=== PATIENT | male | born 2000 | race Two or more races ===

== ENCOUNTER 2023-06-02 13:32 | Emergency (ER) | payer OTHER, SELFPAY ==
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
[2023-06-02 14:50] VITALS: BP 98/64; PULSE 71; RESP 18; TEMP 36.8; O2SAT 98
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
[2023-06-02] MEDS: HYDROcodone Bit/Acetam 5/325 TABLET 1 TAB PO (17:27)
== END 2023-06-02 17:36 | disposition home or self-care (01) ==
PROVIDERS: Emergency Provider Student in an Organized Health Care Education/Training Program
DX: S62.201A Unspecified fracture of first metacarpal bone, right hand, initial encounter for closed fracture (principal); V27.49XA Other motorcycle driver injured in collision with fixed or stationary object in traffic accident, initial encounter; Y93.9 Activity, unspecified; Y92.410 Unspecified street and highway as the place of occurrence of the external cause; Y99.9 Unspecified external cause status
CPT/HCPCS: 29125; 73110; 73130; 99283; 99284

== ENCOUNTER 2023-06-06 14:06 | Outpatient (AMB) | payer OTHER, SELFPAY ==
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
== END 2023-06-06 15:04 | disposition home or self-care (01) ==
PROVIDERS: Visit Provider Physician Assistant
DX: S62.201A Unspecified fracture of first metacarpal bone, right hand, initial encounter for closed fracture (principal)
CPT/HCPCS: 26600; 99204

== ENCOUNTER → 2023-06-06 14:06 | Outpatient (BNVA) | payer OTHER, SELFPAY | PROVIDERS: Visit Provider Physician Assistant | DX: S62.201A Unspecified fracture of first metacarpal bone, right hand, initial encounter for closed fracture (principal); R55 Syncope and collapse | CPT/HCPCS: 26600; 99202 ==

== ENCOUNTER 2023-06-13 07:49 | Day surgery (SDC) | payer OTHER, SELFPAY ==
--- NOTE | 2023-06-12 09:16 | HO.ANESPROP2 ---
Documented by User: Jennifer Rivera NP 06/12/23 09:16 HPI - Anesthesia Eval Consult details Narrative: 23yo M for 1st Metacarpal OPEN ORIF vs CRPP PMFSH Active Problems Active Problems: All Active Problems (Updated 06/06/23 @ 15:06 by Teresa Bowser) Fracture of first metacarpal of right hand (Acute) Social History Social History (Updated 06/06/23 @ 14:13 by SUSHIL Shin) Patient Tobacco Use Status: Never used Tobacco Use of substances other than those prescribed or required for medical reasons: Yes Substance Use Type Other:: last used at midnight 06/13/23 Substance Use Frequency: Daily Are you DNR?: No Advance Directives: No Advance Directives Information Provided: Yes Current occupational status: unemployed and disabled Current occupation: right hand Meds Allergies Allergy/AdvReac Type Severity Reaction Status Date / Time No Known Allergies Allergy Verified 06/06/23 14:13 Exam Exam Date and Time: June 12, [id number] Assessment and Plan Assessment Anesthesia Assessment: Chart Reviewed Documented by User: Ronal Gomes MD 06/13/23 10:36 [facility] Family History Family history of problems with anesthesia: No Surgical History History of Problems with Anesthesia: No Social History Social History (Updated 06/06/23 @ 14:13 by SUSHIL Shin) Patient Tobacco Use Status: Never used Tobacco Use of substances other than those prescribed or required for medical reasons: Yes Substance Use Type Other:: last used at midnight 06/13/23 Substance Use Frequency: Daily Are you DNR?: No Advance Directives: No Advance Directives Information Provided: Yes Current occupational status: unemployed and disabled Current occupation: right hand Meds Allergies Allergy/AdvReac Type Severity Reaction Status Date / Time No Known Allergies Allergy Verified 06/06/23 14:13 Exam Airway Mallampati Class: II TM Dist: >3cm Loose/Missing/Broken Teeth: Yes Other: broken teeth Assessment and Plan Assessment Anesthesia Assessment: Anesthesia Plan Discussed Final Anesthetic Review Family History of Problems with Anesthesia: No History of Problems with Anesthesia: No NPO: Yes ASA Class: II Final Preanesthetic Review: No Changes in Pt Med Stat, Meds/Allgs Chart Reviewed, Consent Obtained/Reviewed and Anes Risks/Benef Reviewed Patient Risk: Low Procedure Risk: Low Anesthetic Plan Anesthetic Plan: GA and Regional Block Disposition: Standard PACU
--- NOTE | ~2023-06-13 | FL_ITS ---
EXAMINATION: XR FLUOROSCOPY WITH IMAGES CLINICAL INFORMATION: Fracture right 1st metacarpal. COMPARISON: Previous x-ray May 2023 TECHNIQUE: Fluoroscopy Supervised By: Dr. Heidi Browne. Fluoroscopy Time: 94.36 seconds. Cumulative Dose: 2.9860 mGy. DAP: 0.1805 Gycm2. Images: 10. FINDINGS: Images demonstrate intra-articular fracture at the base of the first metacarpal bone. Later images demonstrate K wires or pins across the fracture and base of the second metacarpal bone and across the first PRISON joint. There is improved alignment. FL/FL guidance in OR IMPRESSION: Fluoroscopy guidance for ORIF of right first metacarpal fracture.
[2023-06-13 08:20] LABS: Amphetamine Screen Urine Not Detected (Not Detect); Barbiturates, Urine Not Detected (Not Detect); Benzodiazepines Screen Urine Not Detected (Not Detect); Cannabinoid Screen Urine POSITIVE (Not Detect); Cocaine Screen Urine Not Detected (Not Detect); Fentanyl, urine Not Detected (Not Detect); Opiate Screen Urine Not Detected (Not Detect); Phencyclidine Screen Urine Not Detected (Not Detect)
[2023-06-13 08:21] VITALS: BP 117/69; PULSE 84; RESP 18; TEMP 36.6; O2SAT 98
[2023-06-13] MEDS: Lactated Ringers 1,000 ML 100 ML IVCONT (08:35)
--- NOTE | 2023-06-13 10:08 | MHC.SHP ---
Pre-Procedural Eval Section A Date of Service: 06/13/23 The patient is an INPATIENT: No Changes since office visit: No Cold of Flu in the past 2 weeks, No New Medical Problems, No Changes in Medication and No Patient answered all questions The History & Physical has been completed within 30 days and I have reviewed it.: Yes Section B Chief Complaint: Unspecified fracture of first metacarpal bone, rig Allergies: Allergies Allergy/AdvReac Type Severity Reaction Status Date / Time No Known Allergies Allergy Verified 06/06/23 14:13 Plan I have reviewed the history and physical and performed a pertinent physical examination on my patient. No changes have occurred unless specified. Time Spent With Patient Time: Total time managing care of this patient today ____ minutes.
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
[2023-06-13 11:35] VITALS: BP 116/71; PULSE 83; RESP 18; TEMP 36.7; O2SAT 99
[2023-06-13 11:40] VITALS: BP 124/69; PULSE 73; RESP 16; O2SAT 100
[2023-06-13 11:45] VITALS: BP 113/42; PULSE 80; RESP 16; O2SAT 98
[2023-06-13 11:50] VITALS: BP 113/61; PULSE 57; RESP 16; O2SAT 98
[2023-06-13 12:05] VITALS: BP 106/50; PULSE 83; RESP 16; TEMP 36.7; O2SAT 98
== END 2023-06-13 13:14 | disposition home or self-care (01) ==
PROVIDERS: Internal Medicine; Visit Provider Orthopaedic Surgery
PROC: (CPT 26615; principal; 2023-06-13 09:20)
DX: S62.211A Bennett's fracture, right hand, initial encounter for closed fracture (principal); W18.39XA Other fall on same level, initial encounter; Y93.55 Activity, bike riding; Y92.9 Unspecified place or not applicable; Y99.8 Other external cause status; Y93.I9 Activity, other involving external motion
CPT/HCPCS: 26650; 80307; J0690; J1100; J2250; J2795

== ENCOUNTER → 2023-06-13 07:49 | Outpatient (BNV) | payer OTHER, SELFPAY | PROVIDERS: Visit Provider Orthopaedic Surgery | DX: S62.201A Unspecified fracture of first metacarpal bone, right hand, initial encounter for closed fracture (principal) | CPT/HCPCS: 26727 ==

== ENCOUNTER 2023-06-19 14:39 | Outpatient (AMB) | payer OTHER, SELFPAY ==
--- NOTE | 2023-06-19 14:42 | MHC.OFFVIS ---
Intake Intake Visit Reasons: PO 1st meta base fx 06/13/23AR Intake Note: Tevin a 23 year old male who presents today for a post operative dressing change of 1st metacarpal CRPP, DOS 06/13/23 AR. Patient reports splint sweaty and wet. Allergies No Known Allergies Allergy (Verified 06/19/23 14:52) HPI PO 1st meta base fx 06/13/23AR HPI Details 23-year-old male who returns to the office today for post-op 1st metacarpal CRPP, 06/13/[address] Browne. He denies experiencing any pain and is doing well overall. He reports his splint was wet due to the sweat. He has no other concerns today. [facility] Social History (Reviewed 06/19/23 @ 14:53 by Emily Noriega [facility]) Patient Tobacco Use Status: Never used Tobacco Current occupational status: unemployed and disabled Current occupation: right hand Review of Systems Const All systems reviewed & are unremarkable except as noted in HPI and below Physical Exam Extrem Other: Right hand: Normal to inspection. Pins are intact. No erythema or drainage. Sensation are intact. Office Procedures Casting/Splints 54315-[id number] Splint Application Procedure code (CPT) selection complete Assessment & Plan Assessment & Plan (1) Fracture of first metacarpal of right hand: Code(s): S62.201A - Unspecified fracture of first metacarpal bone, right hand, initial encounter for closed fracture Qualifiers: Encounter type: initial encounter Fracture morphology: unspecified fracture morphology Fracture type: closed Metacarpal location: unspecified portion of metacarpal Qualified Code(s): S62.201A - Unspecified fracture of first metacarpal bone, right hand, initial encounter for closed fracture Plan The pin site was cleaned and he was placed in a new thumb spica splint which he will keep clean and dry, no use of the RUE. He will see me back as scheduled on June 25 for his routine post-op appointment, sooner if needed. Patient Instructions: Scribed for Agus Castañeda PA-C, by Alex Mahmood manager of medical, on 06/19/2023 at 2:30 PM EST. IAgus PA-C, have personally reviewed and agree with the information entered by the scribe. Coding Level of Care Code Global (34597) Diagnoses Closed fracture of first metacarpal bone of right hand, unspecified fracture morphology, unspecified portion of metacarpal, initial encounter S62.201A Encounter type: initial encounter Fracture morphology: unspecified fracture morphology Fracture type: closed Metacarpal location: unspecified portion of metacarpal CPT Codes Splint - CPT: 81112-Fchrskm Splint Application ([id number])
== END 2023-06-19 15:28 | disposition home or self-care (01) ==
PROVIDERS: Visit Provider Physician Assistant
DX: S62.201A Unspecified fracture of first metacarpal bone, right hand, initial encounter for closed fracture (principal)
CPT/HCPCS: 29125; 99024

== ENCOUNTER → 2023-06-19 14:39 | Outpatient (BNVA) | payer OTHER, SELFPAY | PROVIDERS: Visit Provider Physician Assistant ==

== ENCOUNTER 2023-06-25 14:14 | Outpatient (AMB) | payer OTHER, SELFPAY ==
--- NOTE | 2023-06-25 14:33 | MHC.OFFVIS ---
Intake Intake Visit Reasons: PO 1st meta base fx 06/13/23AR Intake Note: Tevin a 23 year old male who presents today for a post operative appointment for his 1st metacarpal CRPP, DOS 06/13/23 AR. Dressing removed and xrays updated in office. Allergies No Known Allergies Allergy (Verified 06/25/23 14:43) HPI PO 1st meta base fx 06/13/23AR HPI Details Tevin is a 23 year old right hand dominant man who presents S/P right Knapp's fracture dislocation CRPP, DOS: 06/13/23. He is seen today with his girlfriend He was seen by OLINDA Goldsmith on 06/19/23 for a cast change and was placed in a thumb spica splint. He got his previous cast wet in the shower. He says he is doing well overall, and denies any pain. He has no redness or drainage He reports smoking Marijuana frequently throughout the day, every day. [facility] Social History Patient Tobacco Use Status: Never used Tobacco Current occupational status: unemployed and disabled Current occupation: right hand Review of Systems Const All systems reviewed & are unremarkable except as noted in HPI and below Physical Exam Const General: no acute distress and alert Orientation/consciousness: patient oriented x3 Neuro General: patient oriented x3 Extrem Other: The patient was alert oriented and in no acute distress The incision is healing well with no erythema drainage or evidence of infection. Sutures removed and Steri-Strips applied He can make a fist and extend all his digits He can move his wrist without pain He can gently flex and extend his thumb IP joint Sensation is intact Cap refill is brisk Radiographs: 3 views of the right hand, with attention to the thumb were taken and viewed by me today in clinic. They she a right 1st MCP base and CMC joint Knapp's fracture. There may have been a small amount of displacement at the fx site. K-wires appear in satisfactory position Psych Appearance: grossly normal Affect: normal affect Attitude: cooperative Assessment & Plan Assessment & Plan (1) Fracture, Knapp's, right hand, closed: Code(s): S62.211A - Knapp's fracture, right hand, initial encounter for closed fracture Plan Assessment & Plan: 1. Right 1st MCP base and CMC joint Knapp's fracture dislocation, S/P CRPP DOS: 06/13/23 Seen for a cast change: 06/19/23 The patient appears to be doing well post-operatively I educated him about the post-operative course I explained the signs and symptoms of infection, if the patient develops any new or worsening erythema, drainage, pain, or warmth they should contact the clinic or attend the ED. As he has already been seen for a wet cast change, out of an abundance of caution I ordered a 7-day course of PO Augmentin for him to take He was placed in a new thumb spica cast to wear for the next few weeks I discussed activity modifications, he is to lift nothing heavier than a cellphone for the next several weeks He is a heavy user of Marijuana, and I explained the difficulties of bone healing when smoking I explained this could delay the removal of his K-wires if he continues to smoke He will follow up in 4 weeks, with X-rays 3V attn R thumb I anticipate K-wire removal at his next appointment, based on bony healing Scribed for Heidi Browne MD by Dima Singh, certified medical biller, on 06/25/23 at 3:00 PM, EST. Orders: Orders XR hand RT min 3V Today M79.641 - Pain in right hand Medications: New amoxicillin-pot clavulanate 875-125 mg 1 tab PO Q12H 14 tabs 0RF Coding Level of Care Code Global (75802) Diagnoses Fracture, Knapp's, right hand, closed S62.211A
== END 2023-06-25 15:40 | disposition home or self-care (01) ==
PROVIDERS: Visit Provider Orthopaedic Surgery
DX: S62.211A Bennett's fracture, right hand, initial encounter for closed fracture (principal)
CPT/HCPCS: 99024

== ENCOUNTER 2023-06-25 15:39 | Outpatient (REF) | payer OTHER, SELFPAY ==
--- NOTE | ~2023-06-25 | XR_ITS ---
EXAMINATION: XR HAND, RIGHT CLINICAL INFORMATION: Right hand pain. COMPARISON: None available. TECHNIQUE: PA, lateral, and oblique views of the right hand. FINDINGS: The patient is status post orthopedic pin placement through a fracture at the base of the first metacarpal bone. The tip of the more peripheral pin appears to lie in the proximal metaphysis of the second metacarpal bone. The proximal pin may traverse the trapezium, although it is difficult to definitively to ascertain its course. The location of the tip of the more proximal pin is also not clearly appreciated, and may lie in the region of the joint space between the trapezium and trapezoid bones. No evidence of fracture or loosening of the metallic pins. The smaller bony fragment may be displaced peripherally approximately 0.2-0.3 cm relative to the main fragment. No subluxation is seen. The bones and soft tissues otherwise appear unremarkable. No other fracture. Alignment otherwise appears anatomic. Joint spaces otherwise appear maintained. No erosions or soft tissue calcifications. XR/XR hand RT min 3V IMPRESSION: Status post orthopedic pin placement through a fracture at the base of the first metacarpal bone, as above.
== END 2023-06-25 15:40 | disposition home or self-care (01) ==
LOC: HO.HOSX 15:39
PROVIDERS: Visit Provider Orthopaedic Surgery
DX: S62.211D Bennett's fracture, right hand, subsequent encounter for fracture with routine healing (principal)
CPT/HCPCS: 73130

== ENCOUNTER 2023-07-23 10:46 | Outpatient (REF) | payer OTHER, SELFPAY ==
--- NOTE | ~2023-07-23 | XR_ITS ---
EXAMINATION: XR HAND, RIGHT CLINICAL INFORMATION: Pain COMPARISON: Hand radiographs 06/25/2023 TECHNIQUE: Three views of the right hand. FINDINGS: Percutaneous fixation pins are seen fixating the fracture of the base of the first metacarpal in unchanged alignment with some suspected minimal bridging bony calcification new from prior. Joint spaces are maintained. Soft tissues are unremarkable. XR/XR hand RT min 3V IMPRESSION: Percutaneous fixation pins are seen fixating the fracture of the base of the first metacarpal in unchanged alignment with some suspected minimal bridging bony calcification new from prior.
== END 2023-07-23 10:47 | disposition home or self-care (01) ==
LOC: HO.HOSX 10:46
PROVIDERS: Visit Provider Physician Assistant
DX: S62.211D Bennett's fracture, right hand, subsequent encounter for fracture with routine healing (principal); M79.641 Pain in right hand; X58.XXXD Exposure to other specified factors, subsequent encounter
CPT/HCPCS: 29085; 73130

== ENCOUNTER 2023-07-23 14:41 | Outpatient (AMB) | payer OTHER, SELFPAY ==
--- NOTE | 2023-07-23 14:59 | MHC.OFFVIS ---
Intake Intake Visit Reasons: PO 1st meta base fx 06/13/23AR Intake Note: Tevin is a 23 year old right hand dominant male who presents today for a post op appointment s/p 1st meta base fx 06/13/23 AR. Patient reports having pain and discomfort. Also he stated that the cast was unconformable. Allergies No Known Allergies Allergy (Verified 07/23/23 15:05) HPI PO 1st meta base fx 06/13/23AR HPI Details 23-year-old right hand dominant male who presents in the office today 5 weeks status post right 1st metacarpal base and CMC joint (Knapp's fracture dislocation) closed reduction percutaneous pinning, which was performed on 06/13/[address] Browne. [facility] Social History Patient Tobacco Use Status: Never used Tobacco Current occupational status: unemployed and disabled Current occupation: right hand Review of Systems Const All systems reviewed & are unremarkable except as noted in HPI and below Physical Exam Const General: cooperative, healthy appearing and no acute distress Resp Effort & Inspection: normal respiratory effort and able to speak in complete sentences Cardio Rate: regular rate Peripheral pulses: Peripheral pulses 2+ throughout GI Palpation (GI): Soft to palpation Skin Lesions: no lesions Rashes: no rashes Extrem Other: Right hand: Normal to inspection. Pins are intact. No erythema or drainage. Sensation is intact. Office Procedures Casting/Splints 09322-Ftbw/Wrist Cast Application Procedure code (CPT) selection complete Assessment & Plan Assessment & Plan (1) Fracture, Knapp's, right hand, closed: Code(s): S62.211A - Knapp's fracture, right hand, initial encounter for closed fracture Qualifiers: Encounter type: subsequent encounter Fracture healing: with routine healing Qualified Code(s): S62.211D - Knapp's fracture, right hand, subsequent encounter for fracture with routine healing Plan Mr. Gulshan Jones is a 23-year-old right hand dominant male who presents in the office today 5 weeks status post right 1st metacarpal base and CMC joint (Knapp's fracture dislocation) closed reduction percutaneous pinning, which was performed on 06/13/[address] Browne. X-rays obtained in the office today does show some bony healing, however, in my opinion this is not adequate enough for pin removal at this time. He was placed back into a thumb spica cast, custom made, while in the office today. I would like for him to follow up in 2 weeks for repeat x-rays to re-evaluated pin removal would be appropriate at that time. We did re-educated the patient that this is likely delayed healing due to his heavy marijuana smoking. The patient understands and accepts reluctantly. Follow up will be in 2 weeks, or sooner if needed. X-rays of the right thumb which were obtained while in the office today and were reviewed by me, Jammie Hart PA-C, revealed some bony healing. Patient Instructions: Scribed for Jammie Hart PA-C by Teresa Bowser medical record coder, on 07/23/2023 at 2:46 pm, EST. Coding Level of Care Code Global (75494) Diagnoses Closed Knapp's fracture of right thumb with routine healing, subsequent encounter S62.211D Encounter type: subsequent encounter Fracture healing: with routine healing CPT Codes Casting - CPT: 10769-Ljmi/Wrist Cast Application ([id number])
== END 2023-07-23 15:40 | disposition home or self-care (01) ==
PROVIDERS: Visit Provider Physician Assistant
DX: S62.211D Bennett's fracture, right hand, subsequent encounter for fracture with routine healing (principal)
CPT/HCPCS: 29085; 99024

== ENCOUNTER 2023-08-05 14:39 | Outpatient (REF) | payer OTHER, SELFPAY ==
--- NOTE | ~2023-08-05 | XR_ITS ---
EXAMINATION: XR HAND, RIGHT CLINICAL INFORMATION: Pain. COMPARISON: Prior examinations, most recently 07/23/2023. TECHNIQUE: PA, lateral, and oblique views of the right hand. FINDINGS: There is generalized periarticular osteopenia. There is stable alignment of a mildly displaced intra-articular fracture of the base of the right first metacarpal bone. 2 percutaneous fixator pins are unchanged in positions, without failure or loosening noted. No dislocation is seen. There is no focal soft tissue swelling, gas or foreign body. XR/XR hand RT min 3V IMPRESSION: There is stable alignment of a mildly displaced intra-articular fracture of the base of the right first metacarpal. No significant new callus formation is noted.
== END 2023-08-05 14:40 | disposition home or self-care (01) ==
LOC: HO.HOSX 14:39
PROVIDERS: Visit Provider Physician Assistant
DX: S62.211D Bennett's fracture, right hand, subsequent encounter for fracture with routine healing (principal)
CPT/HCPCS: 29085; 73130

== ENCOUNTER 2023-08-05 14:39 | Outpatient (AMB) | payer OTHER, SELFPAY ==
--- NOTE | 2023-08-05 14:56 | MHC.OFFVIS ---
Intake Intake Visit Reasons: PO 1st meta base fx 06/13/23AR Intake Note: Tevin is a 23 year old right hand dominant male who presents today for a post op appointment s/p 1st meta base fx 06/13/23 AR. Cast off and xrays updated. Patient reports that he continues to have pain at pin site. Allergies No Known Allergies Allergy (Verified 08/05/23 14:58) HPI PO 1st meta base fx 06/13/23AR HPI Details 23-year-old right hand dominant male who returns to the office today for post-op 1st metacarpal base fracture, 06/13/[address] Browne. He continues to have pain at the pin site of his finger but is doing well overall. He has no other concerns today. [facility] Patient Tobacco Use Status: Never used Tobacco Current occupational status: unemployed and disabled Current occupation: right hand Review of Systems Const All systems reviewed & are unremarkable except as noted in HPI and below Physical Exam Extrem Other: Right hand: Normal to inspection. Pins are intact. No erythema or drainage. Sensation are intact. Office Procedures Casting/Splints [id number]-Rwtt/Wrist Cast Application Procedure code (CPT) selection complete Results Reviewed Results Reviewed: Xrays were obtained in the office today and personally reviewed by me of the right hand show pinn intact with interval healing through the fracture site. Assessment & Plan Assessment & Plan (1) Fracture, Ra's, right hand, closed: Code(s): S62.211A - Knapp's fracture, right hand, initial encounter for closed fracture Qualifiers: Encounter type: subsequent encounter Fracture healing: with routine healing Qualified Code(s): S62.211D - Knapp's fracture, right hand, subsequent encounter for fracture with routine healing Plan Pins removed today and pin sites were cleaned. He was placed in a short arm thumb spice cast. He will perform no lifting more than cellphone. I would like to see him/her back in 4 weeks with cast off and new x-rays, sooner if needed. Orders: Orders XR hand RT min 3V 08/05/23 M79.641 - Pain in right hand Patient Instructions: Scribed for Ta-Shamika Castañeda PA-C, by Alex Mahmood medical territory manager, on 08/05/2023 at 2:45 PM Agus FITCH PA-C, have personally reviewed and agree with the information entered by the betsy. Coding Level of Care Code Global (38901) Diagnoses Closed Knapp's fracture of right thumb with routine healing, subsequent encounter S62.211D Encounter type: subsequent encounter Fracture healing: with routine healing CPT Codes Casting - CPT: 94756-Kzhk/Wrist Cast Application ([id number])
== END 2023-08-05 15:44 | disposition home or self-care (01) ==
PROVIDERS: Visit Provider Physician Assistant
DX: S62.211D Bennett's fracture, right hand, subsequent encounter for fracture with routine healing (principal)
CPT/HCPCS: 29085; 99024

== ENCOUNTER 2023-09-03 10:22 | Outpatient (REF) | payer OTHER, SELFPAY | END 2023-09-03 10:23 | disposition home or self-care (01) | LOC: HO.HOSX 10:22 | PROVIDERS: Visit Provider Physician Assistant | DX: S62.211D Bennett's fracture, right hand, subsequent encounter for fracture with routine healing (principal); M79.641 Pain in right hand; X58.XXXD Exposure to other specified factors, subsequent encounter | CPT/HCPCS: 73130; 99212 ==

== ENCOUNTER 2023-09-03 14:27 | Outpatient (AMB) | payer OTHER, SELFPAY ==
--- NOTE | 2023-09-03 14:29 | MHC.OFFVIS ---
Intake Intake Visit Reasons: OV-1st meta base fx 06/13/23 Intake Note: Tevin is a 23 year old right hand dominant male who presents today for a follow up 1st meta base fx 06/13/23 AR. Patient reports he is doing well. Allergies No Known Allergies Allergy (Verified 09/03/23 14:29) HPI OV-1st meta base fx 06/13/23 HPI Details 23-year-old right hand dominant male who presents in the office today 2 months status post right 1st metacarpal base and CMC joint (Knapp's fracture dislocation) closed reduction percutaneous pinning, which was performed on 06/13/[address] Browne. He was last seen in the office on 08/05/2023 by Agus Castañeda PA-C when the pin was removed and he was placed in a short arm thumb spica cast. He was instructed to not lift more than a cell phone. The patient reports he is doing well. [facility] Social History Patient Tobacco Use Status: Never used Tobacco Current occupational status: unemployed and disabled Current occupation: right hand Review of Systems Const All systems reviewed & are unremarkable except as noted in HPI and below Physical Exam Const General: cooperative, healthy appearing and no acute distress Resp Effort & Inspection: normal respiratory effort and able to speak in complete sentences Cardio Rate: regular rate Peripheral pulses: Peripheral pulses 2+ throughout GI Palpation (GI): Soft to palpation Skin Lesions: no lesions Rashes: no rashes Extrem Other: Right hand: No erythema or drainage at the prior pin site. No signs of infection. Able to slightly flex and extend at the IP and CMC joint, but is limited due to stiffness. No tenderness to palpation over the base of the thumb. Sensation intact. Capillary refill is brisk. Assessment & Plan Assessment & Plan (1) Fracture, Knapp's, right hand, closed: Code(s): S62.211A - Knapp's fracture, right hand, initial encounter for closed fracture Qualifiers: Encounter type: subsequent encounter Fracture healing: with routine healing Qualified Code(s): S62.211D - Knapp's fracture, right hand, subsequent encounter for fracture with routine healing Plan Mr. Jones is a 23-year-old right hand dominant male who presents in the office today 2 months status post right 1st metacarpal base and CMC joint (Knapp's fracture dislocation) closed reduction percutaneous pinning, which was performed on 06/13/[address] Browne. He was last seen in the office on 08/05/2023 by Agus Castañeda PA-C when the pin was removed and he was placed in a short arm thumb spica cast. He was instructed to not lift more than a cell phone. The patient reports he is doing well. The patient was transitioned to a velcro thumb spica in the office today. He should treat the splint like a cast and only remove it for ROM exercises, showering, and hand washing. Follow up will be in 4 weeks for a ROM exercises, or sooner if needed. X-rays of the right hand which were obtained while in the office today and were reviewed by , Jammie Hart PA-C, revealed routine healing of a Quinn?s of the right thumb. Orders: Orders XR hand RT min 3V 09/03/23 M79.643 - Pain in unspecified hand OT Evaluation and Treatment 09/03/23 S62.211A - Knapp's fracture, right hand, initial encounter for closed fracture Patient Instructions: Scribed for Jammie Hart PA-C by Teresa Bowser pesticide use medical coordinator, on 09/03/2023 at 2:29 pm, EST. Coding Level of Care Code Global (24020) Diagnoses Closed Knapp's fracture of right thumb with routine healing, subsequent encounter S62.211D Encounter type: subsequent encounter Fracture healing: with routine healing
== END 2023-09-03 15:16 | disposition home or self-care (01) ==
PROVIDERS: Visit Provider Physician Assistant
DX: S62.211D Bennett's fracture, right hand, subsequent encounter for fracture with routine healing (principal)
CPT/HCPCS: 99024

== ENCOUNTER 2023-10-03 11:46 | Outpatient (REF) | payer OTHER, SELFPAY | END 2023-10-03 11:47 | disposition home or self-care (01) | LOC: HO.HOSX 11:46 | PROVIDERS: Visit Provider Physician Assistant | DX: Z13.89 Encounter for screening for other disorder (principal) ==